=== PATIENT | female | born 1970 | race Caucasian/White ===

== ENCOUNTER 2016-12-23 23:27 | Emergency (ER) | payer OTHER ==
[~2016-12-23] VITALS: Ht 162.6 cm; Wt 74.3 kg
[~2016-12-23 23:27] MED LIST: ADDERALL PO; ADDERALL XR 2525 MG PO; ADDERALL10 M1 PO; ALPRAZOLAM0.5 MG PO; AMOXICILLIN500 MG PO; BENTYL20 MG PO; CEFDINIR300 MG PO; COLACE100 MG PO; ENDOCET 5-3251 EACH PO; FLEXERIL10 MG PO; FLUOXETINE HCL20 MG PO; FLUOXETINE HCL40 MG PO; GABAPENTIN400 MG PO; GABAPENTIN800 MG PO; IBUPROFEN400 MG PO; INDOCIN25 MG PO; KEFLEX500 MG PO; KLOR-CON M2020 MEQ PO; LISINOPRIL2.5 MG PO; MOTRIN600 MG PO; NAPROSYN500 MG PO; NEURONTIN300 MG PO; NEURONTIN800 MG PO; NORCO 7.5/321 TABLET PO; OMEPRAZOLE40 M1 PO; PERCOCET 5/31 TABLET PO; PHENERGAN25 MG PR; PROMETHAZINE HC25 M1 PO; PROTONIX40 MG PO; PROZAC PO; PROZAC40 MG PO; REGLAN5 MG PO; TIZANIDINE HCL4 M1 PO; TORADOL10 MG PO; TYLENOL REGULA325 MG PO; TYLENOL WITH C1 EACH PO; VALIUM5 MG PO; WELLBUTRIN100 MG PO; XANAX0.25 MG PO; XANAX0.5 MG PO; XANAX1 MG PO; ZANTAC150 MG PO; ZESTRIL10 MG PO; ZOFRAN ODT4 MG PO; ZOFRAN4 MG PO
[2016-12-24 00:17] LABS: HEMATOCRIT 37.8 % (36.0-46.0); MCH 31.7 PG (29.0-34.0); MCHC 35.2 G/DL (30.0-36.0); MCV 90.2 FL (83-99); MEAN PLAT.VOLUME 9.7 uM^3 (9.5-12.4); PLATELET COUNT 292 K/uL (156-360); RBC DIS.WIDTH-CV 12.6 % (11.8-14.6); RBC DIS.WIDTH-SD 40.7 % (39-53); RED BLOOD COUNT 4.19 M/uL (3.80-5.20); WHITE BLOOD COUNT 10.1 K/uL (4.1-10.2)
[2016-12-24 00:25] LABS: CHLORIDE 111 mEq/L (99-109); POTASSIUM 3.5 mEq/L (3.7-5.4); SODIUM 142 mEq/L (136-147)
[2016-12-24 00:27] LABS: GLUCOSE 86 mg/dL (70-99)
[2016-12-24 00:29] LABS: ANION GAP 6 MEQ/L (2-14); TOTAL BILIRUBIN 0.2 mg/dL (0.0-1.0)
[2016-12-24 00:31] LABS: ALKALINE PHOSPHATASE 70 IU/L (3-129); GFR ESTIMATE (CALCULATED) > 59 mL/min/
[2016-12-24 00:32] LABS: UREA NITROGEN (BUN) 8 mg/dL (9-23)
[2016-12-24 00:40] LABS: QUANTITATIVE HCG < 4.0 MIU/ML
[2016-12-24 00:51] LABS: ADD MIUA? YES; BILIRUBIN NEGATIVE; BLOOD NEGATIVE; COLOR YELLOW ((YELLOW)); GLUCOSE (STRIP) NEGATIVE; KETONES 5; LEUKOCYTES NEGATIVE; NITRITE NEGATIVE; PROTEIN (STRIP) NEGATIVE; SPECIFIC GRAVITY 1.021 (1.000-1.030); UROBILINOGEN 0.2 MG/DL (0.2-1.0)
[2016-12-24] MEDS ORDERED: ZOFRAN ODT4 MG PO (01:35)
[2016-12-24] MEDS ORDERED: PERCOCET 5/31 TABLET PO (01:35)
[2016-12-24 01:44] VITALS: BP 112/81
[2016-12-24 01:48] LABS: BACTERIA NONE SEEN /HPF; EPITHELIAL CELLS 1+ /HPF; MUCUS NONE SEEN /LPF; RED BLOOD CELLS 0-5 /HPF (0-5); UCUL ADDED? NO; WHITE BLOOD CELLS 0-5 /HPF (0-5)
== END 2016-12-24 01:45 | disposition home or self-care (01) ==
LOC: EME 23:27
PROVIDERS: Physician Assistant
DX: R10.9 Unspecified abdominal pain (principal); Z87.442 Personal history of urinary calculi; Z86.14 Personal history of Methicillin resistant Staphylococcus aureus infection; F17.200 Nicotine dependence, unspecified, uncomplicated
CPT/HCPCS: 80053; 81003; 84702; 85027; 99281; 99284

== ENCOUNTER 2017-01-04 19:27 | Emergency (ER) | payer OTHER ==
[~2017-01-04] VITALS: Ht 162.6 cm; Wt 74.7 kg
[2017-01-04] MEDS ORDERED: LASIX20 MG PO (20:31)
[2017-01-04 20:32] LABS: MCH 30.4 PG (29.0-34.0); MCHC 33.6 G/DL (30.0-36.0); MCV 90.3 FL (83-99); MEAN PLAT.VOLUME 9.8 uM^3 (9.5-12.4); PLATELET COUNT 377 K/uL (156-360); RBC DIS.WIDTH-CV 12.1 % (11.8-14.6); RED BLOOD COUNT 4.87 M/uL (3.80-5.20); WHITE BLOOD COUNT 10.5 K/uL (4.1-10.2)
[2017-01-04] MEDS ORDERED: REMERON15 M2 PO (20:32)
[2017-01-04 20:41] LABS: CHLORIDE 108 mEq/L (99-109); POTASSIUM 4.1 mEq/L (3.7-5.4); SODIUM 140 mEq/L (136-147)
[2017-01-04 20:43] LABS: GLUCOSE 95 mg/dL (70-99)
[2017-01-04 20:44] LABS: ANION GAP 8 MEQ/L (2-14)
[2017-01-04 20:45] LABS: ADD MIUA? NO; BILIRUBIN NEGATIVE; BLOOD NEGATIVE; COLOR YELLOW ((YELLOW)); GLUCOSE (STRIP) NEGATIVE; KETONES NEGATIVE; LEUKOCYTES NEGATIVE; NITRITE NEGATIVE; PROTEIN (STRIP) NEGATIVE; SPECIFIC GRAVITY 1.021 (1.000-1.030); UCUL ADDED? NO; UROBILINOGEN 0.2 MG/DL (0.2-1.0)
[2017-01-04 20:47] LABS: GFR ESTIMATE (CALCULATED) > 59 mL/min/
[2017-01-04 20:48] LABS: UREA NITROGEN (BUN) 12 mg/dL (9-23)
[2017-01-04 20:55] LABS: QUANTITATIVE HCG < 4.0 MIU/ML
[2017-01-04] MEDS ORDERED: PERCOCET 5/31 TABLET PO (22:14)
[2017-01-04 22:22] VITALS: BP 140/99
== END 2017-01-04 22:23 | disposition home or self-care (01) ==
LOC: EME 19:27
DX: R10.9 Unspecified abdominal pain (principal); I10 Essential (primary) hypertension; F17.200 Nicotine dependence, unspecified, uncomplicated
CPT/HCPCS: 76770; 80048; 81003; 84702; 85027; 99281; 99284

== ENCOUNTER 2017-01-06 11:56 | Emergency (ER) | payer OTHER ==
[~2017-01-06] VITALS: Ht 162.6 cm; Wt 73.4 kg
[~2017-01-06 11:56] MED LIST changes: +LASIX20 MG PO; +REMERON15 M2 PO
[2017-01-06 12:55] LABS: HEMATOCRIT 45.9 % (36.0-46.0); MCH 30.5 PG (29.0-34.0); MCHC 33.8 G/DL (30.0-36.0); MCV 90.4 FL (83-99); MEAN PLAT.VOLUME 9.4 uM^3 (9.5-12.4); PLATELET COUNT 350 K/uL (156-360); RBC DIS.WIDTH-CV 12.1 % (11.8-14.6); RBC DIS.WIDTH-SD 40.5 % (39-53); RED BLOOD COUNT 5.08 M/uL (3.80-5.20); WHITE BLOOD COUNT 11.7 K/uL (4.1-10.2)
[2017-01-06 13:40] LABS: ALKALINE PHOSPHATASE 64 IU/L (3-129); ANION GAP 8 MEQ/L (2-14); CHLORIDE 108 MEQ/L (99-109); GFR ESTIMATE (CALCULATED) > 59 mL/min/; GLUCOSE 100 mg/dL (70-99); LIPASE 18 U/L (1.0-51.0); SAMPLE HEMOLYSIS CHECK 0; SAMPLE ICTERIC CHECK 0; SAMPLE LIPEMIA CHECK 0; SODIUM 140 MEQ/L (136-147); TOTAL BILIRUBIN 0.6 MG/DL (0.0-1.0); UREA NITROGEN (BUN) 11 mg/dL (9-23)
[2017-01-06 14:08] LABS: QUANTITATIVE HCG < 4.0 MIU/ML
[2017-01-06 15:16] LABS: ADD MIUA? YES; BILIRUBIN NEGATIVE; BLOOD NEGATIVE; COLOR YELLOW ((YELLOW)); GLUCOSE (STRIP) NEGATIVE; KETONES NEGATIVE; LEUKOCYTES NEGATIVE; NITRITE NEGATIVE; PROTEIN (STRIP) NEGATIVE; SPECIFIC GRAVITY 1.017 (1.000-1.030); UROBILINOGEN 0.2 MG/DL (0.2-1.0)
[2017-01-06 15:28] LABS: AMPHETAMINE NEGATIVE (500 ng/mL); BARBITURATES NEGATIVE (200 ng/mL); BENZODIAZEPINES NEGATIVE (150 ng/mL); COCAINE NEGATIVE (150 ng/mL); INTERNAL CONTROLS VALID? YES; METHADONE NEGATIVE (200 ng/mL); METHAMPHETAMINE NEGATIVE (500 ng/mL); OPIATES (MORPHINE) NEGATIVE (100 ng/mL); OXYCODONE PRESUMPTIVE POSITIVE (100 ng/mL); PHENCYCLIDINE NEGATIVE (25 ng/mL); PROPOXYPHENE NEGATIVE (300 ng/mL); THC CANNABINOIDS NEGATIVE (50 ng/mL); TRICYCLIC ANTIDEPRESSANTS NEGATIVE (300 ng/mL)
[2017-01-06 15:31] LABS: BACTERIA NONE SEEN /HPF; EPITHELIAL CELLS 1+ /HPF; MUCUS NONE SEEN /LPF; RED BLOOD CELLS 0-5 /HPF (0-5); UCUL ADDED? NO; WHITE BLOOD CELLS 0-5 /HPF (0-5)
[2017-01-06] MEDS ORDERED: PERCOCET 5/31 TABLET PO (17:10)
[2017-01-06 17:18] VITALS: BP 160/100
== END 2017-01-06 17:18 | disposition home or self-care (01) ==
LOC: EME 11:56
PROVIDERS: Physician Assistant
DX: R10.9 Unspecified abdominal pain (principal); I10 Essential (primary) hypertension; R11.0 Nausea; R19.7 Diarrhea, unspecified; F17.200 Nicotine dependence, unspecified, uncomplicated
CPT/HCPCS: 74176; 80053; 81003; 83690; 84702; 85027; 99281; 99285

== ENCOUNTER 2017-02-02 15:27 | Emergency (ER) | payer OTHER ==
[~2017-02-02] VITALS: Ht 162.6 cm; Wt 73.4 kg
[2017-02-02 16:02] LABS: HEMATOCRIT 44.6 % (36.0-46.0); MCH 30.6 PG (29.0-34.0); MCHC 34.8 G/DL (30.0-36.0); MEAN PLAT.VOLUME 9.8 uM^3 (9.5-12.4); PLATELET COUNT 369 K/uL (156-360); RBC DIS.WIDTH-CV 12.1 % (11.8-14.6); RBC DIS.WIDTH-SD 38.9 % (39-53); RED BLOOD COUNT 5.07 M/uL (3.80-5.20); WHITE BLOOD COUNT 10.4 K/uL (4.1-10.2)
[2017-02-02 16:26] LABS: CHLORIDE 111 mEq/L (99-109); POTASSIUM 3.9 mEq/L (3.7-5.4); SODIUM 141 mEq/L (136-147)
[2017-02-02 16:28] LABS: GLUCOSE 93 mg/dL (70-99)
[2017-02-02 16:30] LABS: ANION GAP 10 MEQ/L (2-14); TOTAL BILIRUBIN 0.4 mg/dL (0.0-1.0)
[2017-02-02 16:32] LABS: ALKALINE PHOSPHATASE 65 IU/L (3-129); GFR ESTIMATE (CALCULATED) > 59 mL/min/
[2017-02-02 16:33] LABS: UREA NITROGEN (BUN) 10 mg/dL (9-23)
[2017-02-02 16:35] LABS: LIPASE 27 U/L (1.0-51.0)
[2017-02-02 16:50] LABS: ADD MIUA? YES; BILIRUBIN NEGATIVE; BLOOD SMALL; COLOR YELLOW ((YELLOW)); GLUCOSE (STRIP) NEGATIVE; KETONES 5; LEUKOCYTES NEGATIVE; NITRITE NEGATIVE; PROTEIN (STRIP) 30; SPECIFIC GRAVITY 1.026 (1.000-1.030); UROBILINOGEN 0.2 MG/DL (0.2-1.0)
[2017-02-02 16:59] LABS: BACTERIA RARE /HPF; EPITHELIAL CELLS 1+ /HPF; MUCUS TRACE /LPF; RED BLOOD CELLS 0-5 /HPF (0-5); UCUL ADDED? NO; WHITE BLOOD CELLS 0-5 /HPF (0-5)
[2017-02-02] MEDS ORDERED: INDOCIN25 MG PO (17:29)
[2017-02-02] MEDS ORDERED: FIORICET 50-301 EACH PO (17:29)
[2017-02-02] MEDS ORDERED: LIDODERM 5% P1 PATCH TD (17:29)
[2017-02-02 17:47] VITALS: BP 144/87
== END 2017-02-02 17:48 | disposition home or self-care (01) ==
LOC: EME 15:27
DX: R07.89 Other chest pain (principal); G44.209 Tension-type headache, unspecified, not intractable; E86.0 Dehydration; Z86.14 Personal history of Methicillin resistant Staphylococcus aureus infection; Z87.442 Personal history of urinary calculi; F17.200 Nicotine dependence, unspecified, uncomplicated
CPT/HCPCS: 71101; 80053; 81003; 83690; 85027; 99281; 99284

== ENCOUNTER 2017-06-20 20:06 | Emergency (ER) | payer OTHER ==
[~2017-06-20] VITALS: Ht 162.6 cm; Wt 74.3 kg
[~2017-06-20 20:06] MED LIST changes: +FIORICET 50-301 EACH PO; +LIDODERM 5% P1 PATCH TD
[2017-06-20] MEDS ORDERED: PREDNISONE10 M1 PO (22:08)
[2017-06-20 22:24] VITALS: BP 154/96
== END 2017-06-20 22:26 | disposition home or self-care (01) ==
LOC: EME 20:06
DX: M65.4 Radial styloid tenosynovitis [de Quervain] (principal); F17.210 Nicotine dependence, cigarettes, uncomplicated
CPT/HCPCS: 99281; 99284

== ENCOUNTER 2017-07-25 08:53 | Emergency (ER) | payer OTHER ==
[~2017-07-25] VITALS: Ht 162.6 cm; Wt 74.7 kg
[~2017-07-25 08:53] MED LIST changes: +PREDNISONE10 M1 PO
[2017-07-25] MEDS ORDERED: MEDROL DOSEPAK4 MG PO (09:29)
[2017-07-25 10:15] VITALS: BP 153/97
== END 2017-07-25 10:16 | disposition home or self-care (01) ==
LOC: EME 08:53
DX: G56.01 Carpal tunnel syndrome, right upper limb (principal); Z88.8 Allergy status to other drugs, medicaments and biological substances
CPT/HCPCS: 99281; 99284

== ENCOUNTER 2018-03-19 10:23 | Emergency (ER) | payer OTHER ==
[~2018-03-19] VITALS: Ht 162.6 cm; Wt 78.4 kg
[~2018-03-19 10:23] MED LIST changes: +MEDROL DOSEPAK4 MG PO
[2018-03-19] MEDS ORDERED: TYLENOL WITH C1 EACH PO (12:48)
[2018-03-19] MEDS ORDERED: PEN-VEE K,VEET500 MG PO (12:48)
[2018-03-19 12:57] VITALS: BP 127/91
[2018-03-20] MEDS ORDERED: LIDOCAINE20 MG/1 M5 PO (02:56)
[2018-03-20] MEDS ORDERED: PEN-VEE K,VEET250 MG PO (02:56)
[2018-03-20] MEDS ORDERED: PEN-VEE K,VEET500 MG PO (02:56)
[2018-03-20] MEDS ORDERED: INDOCIN25 MG PO (02:56)
== END 2018-03-19 12:58 | disposition home or self-care (01) ==
LOC: EME 10:23
DX: K04.7 Periapical abscess without sinus (principal); F17.200 Nicotine dependence, unspecified, uncomplicated; F32.9 Major depressive disorder, single episode, unspecified; I10 Essential (primary) hypertension; Z88.8 Allergy status to other drugs, medicaments and biological substances; Z88.6 Allergy status to analgesic agent
CPT/HCPCS: 99281; 99283

== ENCOUNTER 2018-03-20 02:25 | Emergency (ER) | payer OTHER ==
[~2018-03-20] VITALS: Ht 162.6 cm; Wt 76.9 kg
[~2018-03-20 02:25] MED LIST changes: +PEN-VEE K,VEET500 MG PO
[2018-03-20] MEDS ORDERED: INDOCIN25 MG PO (02:56)
[2018-03-20] MEDS ORDERED: PEN-VEE K,VEET500 MG PO (02:56)
[2018-03-20] MEDS ORDERED: LIDOCAINE20 MG/1 M5 PO (02:56)
[2018-03-20] MEDS ORDERED: PEN-VEE K,VEET250 MG PO (02:56)
[2018-03-20 04:00] VITALS: BP 153/105
== END 2018-03-20 04:00 | disposition home or self-care (01) ==
LOC: EME 02:25
DX: K05.10 Chronic gingivitis, plaque induced (principal); K08.89 Other specified disorders of teeth and supporting structures; F17.200 Nicotine dependence, unspecified, uncomplicated; Z88.8 Allergy status to other drugs, medicaments and biological substances; Z88.6 Allergy status to analgesic agent
CPT/HCPCS: 99281; 99283

== ENCOUNTER 2018-04-25 11:24 | Emergency (ER) | payer OTHER ==
[~2018-04-25] VITALS: Ht 162.6 cm; Wt 79.4 kg
[~2018-04-25 11:24] MED LIST changes: +LIDOCAINE20 MG/1 M5 PO; +PEN-VEE K,VEET250 MG PO
[2018-04-25] MEDS ORDERED: AUGMENTIN875 MG PO (14:18)
[2018-04-25 14:35] VITALS: BP 135/85
== END 2018-04-25 14:37 | disposition home or self-care (01) ==
LOC: EME 11:24
PROC: 3E0234Z Introduction of Serum, Toxoid and Vaccine into Muscle, Percutaneous Approach (ICD-10-PCS; principal; 2018-04-25)
DX: S61.251A Open bite of left index finger without damage to nail, initial encounter (principal); W55.01XA Bitten by cat, initial encounter; Z23 Encounter for immunization; Z20.3 Contact with and (suspected) exposure to rabies; I10 Essential (primary) hypertension; F32.9 Major depressive disorder, single episode, unspecified; F17.200 Nicotine dependence, unspecified, uncomplicated; Z98.51 Tubal ligation status; Z90.49 Acquired absence of other specified parts of digestive tract; Z88.5 Allergy status to narcotic agent; Z91.041 Radiographic dye allergy status; Z88.6 Allergy status to analgesic agent; Z88.8 Allergy status to other drugs, medicaments and biological substances
CPT/HCPCS: 99281; 99284